=== PATIENT | female | born 1965 | race Caucasian/White ===

== ENCOUNTER 2018-06-22 08:28 | Day surgery (SDC) | payer OTHER ==
[2018-06-22] MEDS ORDERED: FENTAnyl 50 MCG/ML VIAL (10:29)
[2018-06-22] MEDS ORDERED: PROPOFOL 20 ML ×2 (10:29→10:55)
[2018-06-22] MEDS ORDERED: ONDANSETRON 4 MG INJ IV (10:30)
[2018-06-22] MEDS: ACETAMINOPHEN 1000MG/100ML IV 100 ML IVPB (11:20)
== END 2018-06-22 12:03 | disposition home or self-care (01) ==
LOC: GIL 08:28
DX: Z12.11 Encounter for screening for malignant neoplasm of colon (principal); D12.0 Benign neoplasm of cecum; K29.00 Acute gastritis without bleeding; I10 Essential (primary) hypertension; E11.9 Type 2 diabetes mellitus without complications
CPT/HCPCS: 43239; 82962; 88305; 88312